=== PATIENT | female | born 1965 | race Two or more races ===

== ENCOUNTER 2023-01-20 06:13 | Inpatient (IN) | payer OTHER ==
[~2023-01-20] VITALS: Ht 162.6 cm; Wt 102.5 kg
--- NOTE | 2023-01-20 06:25 | NUR ---
BIBRA 881 FOR SYNCOPAL EPISODE IN THE BATHROOM. PATIENT IS AAOX4. SLEEPY BUT ABLE TO ANSWER QUESTIONS, PLACED COMFORTABLY IN BED. ATTACHED TO MONITOR. VITALS CHECKED.
[2023-01-20] MEDS ORDERED: ACETAMINOPHEN ES 500 MG TABLET ONE (06:43)
--- NOTE | 2023-01-20 06:52 | NUR ---
IV CHINTAN G18 INSERTED ON RIGHT AC. BLOOD DRAWN AND SENT TO LAB
[2023-01-20] MEDS ORDERED: TDAP [DIPH/PERTUSSIS/TET] 0.5 ML VIAL IM ONE ×2 (06:54→07:00)
[2023-01-20] MEDS ORDERED: BACI/NEOM/POLY B OINT PKT 1 UDPKT PACKET ONE (06:54)
--- NOTE | 2023-01-20 06:59 | NUR ---
XRAY DONE AT BEDSIDE
--- NOTE | 2023-01-20 06:59 | NUR ---
COVID SWAB DONE AND SENT TO LAB
[2023-01-20] MEDS ORDERED: BACI/NEOM/POLY B OINT PKT 1 UDPKT PACKET TP ONE (07:00)
[2023-01-20] MEDS ORDERED: IV NS 0.9% 1,000 ML BAG IV ONE (07:00)
[2023-01-20] MEDS ORDERED: ACETAMINOPHEN ES 500 MG TABLET PO ONE (07:00)
--- NOTE | 2023-01-20 07:25 | NUR ---
patient back from ct
--- NOTE | 2023-01-20 07:32 | NUR ---
REPORT GIVEN TO SHAN VALDIVIA
[2023-01-20 07:37] LABS: BASOPHILS % (AUTO) 0.4 % (0.0-2.0); EOSINOPHILS % (AUTO) 2.3 % (0.0-6.0); HEMATOCRIT 40 % (33-45); HEMOGLOBIN 13.1 g/dL (11.5-14.8); LYMPHOCYTES # (AUTO) 2.8 K/uL (0.8-4.8); LYMPHOCYTES % (AUTO) 21.7 % (20.0-44.0); MEAN CORPUSCULAR HGB CONC 33 g/dl (31.0-36.0); MEAN CORPUSCULAR VOLUME 92 fL (82-100); MONOCYTES # (AUTO) 0.8 K/uL (0.1-1.30); MONOCYTES % (AUTO) 5.8 % (2.0-12.0); NEUTROPHILS # (AUTO) 9.1 K/uL (1.8-8.9); NEUTROPHILS % (AUTO) 69.8 % (43.0-81.0); PLATELET COUNT (AUTO) 225 K/uL (150-450); RED BLOOD CELL COUNT(AUTO) 4.38 MIL/uL (4.0-5.2); WHITE BLOOD COUNT (AUTO) 13.1 K/uL (4.3-11.0)
--- NOTE | 2023-01-20 08:11 | NUR ---
DR DAMON AT BEDSIDE
[2023-01-20 08:23] LABS: ALANINE AMINOTRANSFERASE 17 U/L (12-78); ALBUMIN 3.5 g/dL (3.4-5.0); ALKALINE PHOSPHATASE 63 U/L (46-116); ASPARTATE AMINOTRANSFERASE 18 U/L (15-37); BILIRUBIN,DIRECT 0.1 mg/dL (0.0-0.2); BILIRUBIN,TOTAL 0.2 mg/dL (0.2-1.0); CALCIUM, SERUM 9.1 mg/dL (8.5-10.1); CARBON DIOXIDE 29 mmol/L (21-32); CHLORIDE 102 mmol/L (98-107); CREATININE 0.8 mg/dL (0.6-1.3); GLUCOSE 134 mg/dL (74-106); POTASSIUM 3.6 mmol/L (3.5-5.1); SODIUM SERUM 138 mmol/L (136-145); TOTAL PROTEIN, SERUM 6.9 g/dL (6.4-8.2); UREA NITROGEN, BLOOD 12 mg/dL (7-18)
--- NOTE | 2023-01-20 08:32 | NUR ---
URINE SAMPLE COLLECTED AND SENT TO LAB
--- NOTE | 2023-01-20 08:56 | NUR ---
BRANCH ACCOUNT EXECUTIVE AT BEDSIDE
--- NOTE | 2023-01-20 09:07 | NUR ---
RT AT BEDSIDE
[2023-01-20] MEDS ORDERED: CEFTRIAXONE 1GM BAG (ER ONLY) 50 ML IV ONE (09:21)
[2023-01-20 09:22] LABS: BILIRUBIN,URINE NEGATIVE (NEGATIVE); COLOR,URINE YELLOW (YELLOW); LEUKOCYTE ESTERASE ,URINE NEGATIVE (NEGATIVE); NITRITE, URINE NEGATIVE (NEGATIVE); PROTEIN,URINE NEGATIVE (NEGATIVE); UGLUCOSE NEGATIVE (NEGATIVE); UROBILINOGEN,URINE 0.2 EU/dL (0.2)
[2023-01-20] MEDS ORDERED: CEFTRIAXONE 1 G in IV D5W 50 ML IV ONE (09:30)
[2023-01-20] MEDS ORDERED: AZITHROMYCIN 500 MG in IV D5W 250 ML IV ONE (09:30)
[2023-01-20] MEDS ORDERED: ALBU18HF2 INH (09:48)
[2023-01-20] MEDS ORDERED: METF-442 PO (09:48)
[2023-01-20] MEDS ORDERED: BACL10TA PO (09:48)
[2023-01-20] MEDS ORDERED: LIDO700A30 TP (09:48)
[2023-01-20] MEDS ORDERED: FLUO20CA42 PO (09:48)
[2023-01-20] MEDS ORDERED: GABA800T11 PO (09:48)
[2023-01-20] MEDS ORDERED: TRAM50TA2 PO (09:48)
[2023-01-20] MEDS ORDERED: HYDR-3980 PO (09:48)
[2023-01-20] MEDS ORDERED: OMEP40CA21 PO (09:48)
--- NOTE | 2023-01-20 09:54 | NUR ---
[facility] CALLED DIRECTOR OF PARKS AND RECREATION PAGED.
--- NOTE | 2023-01-20 10:36 | NUR ---
PT APPEARS TO BE SLEEPING IN BED. BREATHING EVEN AND UNLABORED. VSS.
--- NOTE | 2023-01-20 10:40 | NUR ---
[facility] CALLED MARKETING COMMUNICATION MANAGER PAGED. X2
--- NOTE | 2023-01-20 11:39 | NUR ---
Room 325-1 , admitting informed
--- NOTE | 2023-01-20 11:56 | NUR ---
REPORT GIVEN TO APRIL RN. 325-1.
--- NOTE | 2023-01-20 12:20 | NUR ---
RECEIVED PATIENT VIA GURNEY, PATIENT A/O X4, BREATHING EVENLY AND UNLABORED ON ROOM AIR. NO SIGNS OF DISTRESS NOTED AT THIS TIME. VITALS TAKEN: 140/87; TEMP: 98.3; HR: 58; RR: 20; SPO2: 98. PATIENT COMPLAINS PAIN WHEN MOVING, PAIN IS TOLERABLE WHEN WHEN IN SUPINE AND RESTING POSITION.SKIN ASSESSMENT PERFORMED: SKIN C/D/I. IV ACCESS ON RAC #18 SL. PATIENT WAS ORIENTED TO ROOM AND HOW TO USE CALL LIGHT, BELONGINGS ACCOUNTED FOR,SAFETY MEASURES IN PLACE, BED IN LOW LOCKED POSTION, SIDERAILS UP X2, WILL CONTINUE TO MONITOR THE PATIENT.
[2023-01-20 14:21] LABS: ABG BASE EXCESS 0.6 mmol/L; ABG PCO2 41.8 mmHg (35.0-45.0); ABG PH 7.403 (7.350-7.450); ABG PO2 77.3 mmHg (75.0-100.0); COHb 6.3 % (0.5-1.5); MetHb 0.1 % (0.0-1.5); O2Hb 89.8 % (94.0-97.0); SITE, ABG Left Radial
[2023-01-20] MEDS ORDERED: MAGNESIUM HYDROXIDE 30 ML UDC PO PRN (14:30)
[2023-01-20] MEDS ORDERED: Z GUARD REMEDY 4 OZ OINT TP PRN (14:30)
[2023-01-20] MEDS ORDERED: LIDOCAINE 5% (PATCH) 1 EA PATCH TP PRN (14:30)
[2023-01-20] MEDS ORDERED: ONDANSETRON HCL/PF 4 MG/2 ML VIAL IVP PRN (14:30)
[2023-01-20] MEDS ORDERED: ACETAMINOPHEN 325 MG TABLET PO PRN (14:30)
[2023-01-20] MEDS ORDERED: ALBUTEROL FS 2.5 MG/3 ML VIAL.NEB NEB PRN (14:30)
[2023-01-20 16:00] VITALS: BP 141/89
[2023-01-20] MEDS: METFORMIN 500 MG TABLET PO SCH (17:13)
[2023-01-20] MEDS: HYDROCODONE/APAP 5/325MG TABLET PO PRN (17:15)
[2023-01-20 18:03] VITALS: BP 140/87
[2023-01-20 18:09] VITALS: BP 139/85
--- NOTE | 2023-01-20 18:59 | NUR ---
CRANE HELPER CLOSING NOTES PATIENT AWAKE AND RESTING IN BED A/O X4, BREATHING EVENLY AND UNLABORED ON ROOM AIR. NO SIGNS OF DISTRESS NOTED AT THIS TIME. PATIENT WAS GIVEN NORCO 5-325 1 TAB PO Q4 AT 1715 FOR PAIN IN THE BACK AND ARMS WHEN MOVING, IV ACCESS ON RAC #18 SL. SAFETY MEASURES IN PLACE, BED IN LOW LOCKED POSITION, SIDE RAILS UP X2, WILL ENDORSE TO ONCOMING [facility] COUNSELOR RN FOR MICHAEL
[2023-01-20 20:00] VITALS: BP 133/73
[2023-01-20] MEDS: MORPHINE SULFATE INJ 2 MG/ML DISP.SYRIN IV PRN (20:07)
[2023-01-20] MEDS: HEPARIN SODIUM, PORCINE 5000 UNITS/1 ML VIAL SQ SCH (20:18)
--- NOTE | 2023-01-20 20:52 | NUR ---
CITY BUS DRIVER OPENING NOTES PATIENT AWAKE AND RESTING IN BED A/O X4, BREATHING EVENLY AND UNLABORED ON ROOM AIR. PT CRYING FROM PAIN CONTACTED HYPERCIL CORE TRANSFORMER ASSEMBLER FOR PAIN MGMT RECEIVED ORDER FOR MORPHINE 4MG Q4 PRN NOTED CARRIED OUT AND ADMINISTERED. PT REPORTED NAUSEA WITH ONE EPISODE OF EMESIS PRN ZOFRAN GIVEN TOLERATED. IV ACCESS ON RAC #18 SL. SAFETY MEASURES IN PLACE, BED IN LOW LOCKED POSITION, SIDE RAILS UP X2.
[2023-01-21] VITALS: BP 142/71
[2023-01-21] MEDS: MORPHINE SULFATE INJ 2 MG/ML DISP.SYRIN IV PRN ×2 (02:56→08:59)
--- NOTE | 2023-01-21 03:02 | NUR ---
RN NOTE PRN [id number] GIVEN TOLERATED WELL.
[2023-01-21 04:00] VITALS: BP 155/85
[2023-01-21 06:10] LABS: BASOPHILS % (AUTO) 0.1 % (0.0-2.0); EOSINOPHILS % (AUTO) 1.2 % (0.0-6.0); HEMATOCRIT 41 % (33-45); HEMOGLOBIN 13.4 g/dL (11.5-14.8); LYMPHOCYTES % (AUTO) 28.3 % (20.0-44.0); MEAN CORPUSCULAR HGB CONC 33 g/dl (31.0-36.0); MEAN CORPUSCULAR VOLUME 91 fL (82-100); MONOCYTES # (AUTO) 0.6 K/uL (0.1-1.30); MONOCYTES % (AUTO) 5.6 % (2.0-12.0); NEUTROPHILS # (AUTO) 6.8 K/uL (1.8-8.9); NEUTROPHILS % (AUTO) 64.8 % (43.0-81.0); PLATELET COUNT (AUTO) 231 K/uL (150-450); RED BLOOD CELL COUNT(AUTO) 4.47 MIL/uL (4.0-5.2); WHITE BLOOD COUNT (AUTO) 10.5 K/uL (4.3-11.0)
--- NOTE | 2023-01-21 06:38 | NUR ---
INSOLVENCY CONSULTANT CLOSING NOTES PATIENT AWAKE AND RESTING IN BED A/O X4, BREATHING EVENLY AND UNLABORED ON ROOM AIR. ALL DUE MEDS GIVEN AND TOLERATED WELL. PAIN MANAGEMENT PROVIDED NEEDED. REPOSITIONING PROVIDED Q2HRS AND PRN FOR COMFORT. IV ACCESS ON RAC #18 SL. PT WITH PUREWICK DRAINING YELLOW CLEAR URINE.SAFETY MEASURES IN PLACE, BED IN LOW LOCKED POSITION, SIDE RAILS UP X2. WILL ENDORSE CARE TO DAY SHIFT NURSE.
[2023-01-21 06:49] LABS: CALCIUM, SERUM 8.8 mg/dL (8.5-10.1); CREATININE 0.6 mg/dL (0.6-1.3); MAGNESIUM 1.8 mg/dL (1.8-2.4); PHOSPHORUS 3.2 mg/dL (2.5-4.9); POTASSIUM 3.7 mmol/L (3.5-5.1)
[2023-01-21 07:00] VITALS: BP 144/95
[2023-01-21 07:07] LABS: THYROID STIMULATING HORMONE 0.844 uIU/mL (0.358-3.74)
--- NOTE | 2023-01-21 07:25 | NUR ---
RN OPENING NOTE RECEIVED PATIENT IN BED ASLEEP. EASILY AROUSED, NO SIGNS OF ACUTE DISTRESS NOTED. ON ROOM AIR, TOLERATING WELL. NO SOB NOTED, BREATHING EVEN AND UNLABORED. NOTED WITH IV ACCESS ON RIGHT ANTECUBITAL AREA #20G, INTACT AND PATENT, FLUSHES WELL, SALINE LOCKED. SAFETY MEASURE IN PLACE. BED IN LOW AND LOCKED POSITION, SIDE RAILS UP X2, CALL LIGHT PLACED WITHIN EASY REACH. WILL CONTINUE TO MONITOR PATIENT.
[2023-01-21] MEDS: FLUOXETINE HCL 20 MG CAPSULE PO SCH (08:18)
[2023-01-21] MEDS: PANTOPRAZOLE 40 MG TABLET.DR PO SCH (08:18)
[2023-01-21] MEDS: METFORMIN 500 MG TABLET PO SCH ×2 (08:18→16:34)
[2023-01-21] MEDS: NICOTINE PATCH (21MG) 21 MG PATCH.TD24 TD SCH (08:18)
[2023-01-21] MEDS: HEPARIN SODIUM, PORCINE 5000 UNITS/1 ML VIAL SQ SCH ×2 (08:21→20:52)
[2023-01-21 12:00] VITALS: BP 150/92
[2023-01-21] MEDS: GABAPENTIN 400 MG CAPSULE PO SCH ×2 (12:25→16:34)
[2023-01-21 16:00] VITALS: BP 139/82
[2023-01-21] MEDS: HYDROCODONE/APAP 5/325MG TABLET PO PRN ×2 (18:00→22:48)
--- NOTE | 2023-01-21 18:55 | NUR ---
RN CLOSING NOTE PATIENT IN BED ASLEEP. EASILY AROUSED, NO SIGNS OF ACUTE DISTRESS NOTED. A/O X4, VERBALLY RESPONSIVE AND ABLE TO MAKE NEEDS KNOWN. REMAINS STABLE ON ROOM AIR, NO SOB NOTED, BREATHING EVEN AND UNLABORED. WITH IV ACCESS ON RIGHT ANTECUBITAL AREA #20G, INTACT AND PATENT, FLUSHES WELL, SALINE LOCKED. ALL DUE MEDS GIVEN. SAFETY MEASURE MAINTAINED. BED IN LOW AND LOCKED POSITION, SIDE RAILS UP X2, CALL LIGHT PLACED WITHIN EASY REACH. WILL ENDORSE TO NEXT SHIFT FOR CONTINUITY OF CARE.
--- NOTE | 2023-01-21 19:44 | NUR ---
RN MS NOTES RECEIVED PATIENT IN BED, ASLEEP. A/O X 4 ON MODERATE HIGH BACK REST POSITION. PATIENT IS WHEELCHAIR BOUND AND BEDREST FOR NOW. INCONTINENT USES DIAPER AND WITH PUREWICK CONNECTED TO SUCTION NOTED URINE OUTPUT. WITH IV ACCESS AT RAC #18 G PATENT AND INTACT ON SALINE LOCK. NO SS/S OF PAIN OR ANY DISCOMFORT AT THIS TIME. KEPT SIDE RAILS UP X 3 ALL THE TIME. KEPT BED ON LOWER LOCKED POSITION. KEPT CALL LIGHT WITHIN AT REACH. WILL CONTINUE TO MONITOR.
[2023-01-21 20:00] VITALS: BP 152/89
[2023-01-22] MEDS: HYDROCODONE/APAP 5/325MG TABLET PO PRN ×4 (02:52→16:24)
[2023-01-22 05:48] LABS: BASOPHILS % (AUTO) 0.5 % (0.0-2.0); EOSINOPHILS % (AUTO) 1.3 % (0.0-6.0); HEMATOCRIT 41 % (33-45); HEMOGLOBIN 13.5 g/dL (11.5-14.8); LYMPHOCYTES # (AUTO) 3.5 K/uL (0.8-4.8); LYMPHOCYTES % (AUTO) 37.7 % (20.0-44.0); MEAN CORPUSCULAR HGB CONC 33 g/dl (31.0-36.0); MEAN CORPUSCULAR VOLUME 92 fL (82-100); MONOCYTES # (AUTO) 0.6 K/uL (0.1-1.30); MONOCYTES % (AUTO) 6.3 % (2.0-12.0); NEUTROPHILS % (AUTO) 54.2 % (43.0-81.0); PLATELET COUNT (AUTO) 206 K/uL (150-450); WHITE BLOOD COUNT (AUTO) 9.2 K/uL (4.3-11.0)
[2023-01-22 06:22] LABS: CALCIUM, SERUM 8.9 mg/dL (8.5-10.1); CREATININE 0.5 mg/dL (0.6-1.3); MAGNESIUM 1.9 mg/dL (1.8-2.4); PHOSPHORUS 4.1 mg/dL (2.5-4.9); POTASSIUM 3.6 mmol/L (3.5-5.1)
--- NOTE | 2023-01-22 06:34 | NUR ---
RN MS CLOSING NOTES PATIENT IS IN BED, A/O X 4. ON MODERATE HIGH BACK REST POSITION. WITH DIAPER AND PURE WICK CONNECTED TO SUCTION NOTED URINE OUTPUT OF 800ML. NO PAIN OR ANY DISCOMFORT NOTED AT THIS TIME. WITH IV ACCESS AT RAC #18G SL. PATENT AND INTACT. PATIENT REFUSED PM CARE BECAUSE SHE WAS SLEEPY. ALL DUE MEDICATIONS GIVEN, ALL NEEDS ATTENDED. KEPT BED ON LOWER LOCKED POSITION. KEPT SIDE RAILS UP X 2 ALL THE TIME. KEPT CALL LIGHT WITHIN AT REACH. WILL ENDORSED TO AM SHIFT FOR MICHAEL
[2023-01-22] MEDS: PANTOPRAZOLE 40 MG TABLET.DR PO SCH (07:47)
[2023-01-22 08:00] VITALS: BP 156/89
--- NOTE | 2023-01-22 08:08 | NUR ---
RN MS OPENING NOTES PATIENT IS IN BED, A/O X 4. WITH DIAPER AND PURE WICK CONNECTED TO SUCTION. NO PAIN OR ANY DISCOMFORT NOTED AT THIS TIME. WITH IV ACCESS AT RAC #18G SL. PATENT AND INTACT. KEPT BED ON LOWER LOCKED POSITION. KEPT SIDE RAILS UP X 2 ALL THE TIME. KEPT CALL LIGHT WITHIN AT REACH. WILL CONTINUE TO MONITOR.
[2023-01-22] MEDS: METFORMIN 500 MG TABLET PO SCH ×2 (08:25→16:24)
[2023-01-22] MEDS: GABAPENTIN 400 MG CAPSULE PO SCH ×3 (08:25→16:24)
[2023-01-22] MEDS: NICOTINE PATCH (21MG) 21 MG PATCH.TD24 TD SCH (08:25)
[2023-01-22] MEDS: FLUOXETINE HCL 20 MG CAPSULE PO SCH (08:25)
[2023-01-22] MEDS: HEPARIN SODIUM, PORCINE 5000 UNITS/1 ML VIAL SQ SCH (08:27)
--- NOTE | 2023-01-22 16:25 | NUR ---
RN NOTES/WRONG COUNT OF NORCO/DISCREPANCY TOOK ONE NORCO FOR PATIENT 325-1, RIZWAN AND INITIALLY COUNTED TOTAL OF 17 AND AFTER TRANSACTION I REALIZED I DO NOT HAVE MY METFORMIN ON HAND AND I ACCIDENTALLY ADD THE COUNT OF METFORMIN TOGETHER WITH NORCO. CALLED PHARMACY RIGHT AWAY TO CORRECT THE DISCREPANCY AND WAS ADVISED TO OPEN THE OMNICELL AGAIN AND GET THE METFORMIN. AFTER I TOOK THE METFORMIN, TOTAL NUMBER OF NORCO WAS 14.
--- NOTE | 2023-01-22 16:52 | NUR ---
RN NOTES NOTIFIED OSCAR MCDONNELL FOR THE DISCREPANCY, ISSUES WERE RESOLVED.
--- NOTE | 2023-01-22 17:52 | NUR ---
RN NOTES PER SHAKEEL BARBER HANDLE SEWER PATIENT CAN BE DISCHARGE WITHOUT SEEING OSCAR BAIN NOTIFIED
--- NOTE | 2023-01-22 18:21 | NUR ---
DISCHARGED NOTE PATIENT DISCHARGED TO HOME IN STABLE CONDITION. A/OX4. ON RA, TOLERATING WELL WITH SPO2 OF 95%. NO SOB/DISTRESS NOTED. VITAL SIGNS TAKEN, STABLE AND RECORDED. ALL BELONGINGS ACCOUNTED TO THE PATIENT. DISCHARGED INSTRUCTIONS RELAYED TO PATIENT. ALL DUE MEDS GIVEN.IV ACCESS REMOVED WITH NO ACTIVE BLEEDING NOTED. PATIENT LEFT THE UNIT VIA WHEELCHAIR ACCOMPANIED BY MARY. DISCHARGED.
== END 2023-01-22 18:20 | disposition home or self-care (01) | DRG 48 ==
LOC: ER 06:15 → TELE 11:48 → MED 01-21 21:52
PROVIDERS: ADMIT Nurse Practitioner Family; ATTEND Nurse Practitioner Family
DX: G90.8 Other disorders of autonomic nervous system (principal); I11.0 Hypertensive heart disease with heart failure; I50.9 Heart failure, unspecified; E11.42 Type 2 diabetes mellitus with diabetic polyneuropathy; E78.5 Hyperlipidemia, unspecified; F17.210 Nicotine dependence, cigarettes, uncomplicated; D72.829 Elevated white blood cell count, unspecified; Z20.822 Contact with and (suspected) exposure to COVID-19; G89.29 Other chronic pain; J45.909 Unspecified asthma, uncomplicated; S00.81XA Abrasion of other part of head, initial encounter; W19.XXXA Unspecified fall, initial encounter; Y92.002 Bathroom of unspecified non-institutional (private) residence as the place of occurrence of the external cause; Z79.899 Other long term (current) drug therapy; F43.9 Reaction to severe stress, unspecified; F32.A Depression, unspecified; Z79.84 Long term (current) use of oral hypoglycemic drugs; Z79.51 Long term (current) use of inhaled steroids
CPT/HCPCS: 36415; 36600; 70450-TC; 71045-TC; 80048-TC; 80076-TC; 82803-TC; 82962-TC; 83605-TC; 83735-TC; 83880; 84100-TC; 84443-TC; 84484-TC; 85025-TC; 87040-TC; 87081-TC; 90715; 93307-TC; 97112-TC; 97530-TC; C9803; G0378; J0456; J0696; J1644; J2270; J2405; J7030; J7060